=== PATIENT | female | born 1990 | race African-American/Black ===

== ENCOUNTER → 2019-06-05 12:02 | Outpatient (BNVA) | payer MEDICAID, SELFPAY | PROVIDERS: Visit Provider Nurse Practitioner Family | DX: J11.1 Influenza due to unidentified influenza virus with other respiratory manifestations (principal) | CPT/HCPCS: 87804 ==

== ENCOUNTER 2019-06-17 11:25 | Emergency (ER) | payer MEDICAID, SELFPAY ==
[2019-06-17 11:26] VITALS: BP 148/83; PULSE 68; RESP 18; O2SAT 98; BMI 47.9
--- NOTE | 2019-06-17 11:29 | W.ED.SKABFB ---
HPI - Skin/Abscess/Foreign Bdy General: Chief complaint: Skin/Abscess/Foreign Body Stated complaint: KNOT ON LEFT BREAST Time Seen by Provider: 06/17/19 11:29 Source: patient Mode of arrival: ambulatory Limitations: no limitations History of Present Illness: HPI narrative: Patient is a 28-year-old female who presents to ED today with complaints of a mass/lesion on her left breast; patient states she has noticed monthly around her menstrual cycle that she will get a cystic type lesion on her left lateral breast; patient states she will often try to squeeze the area and just gets blood; patient reports she has noticed 2 other small lumps to her breast during routine self breast exams; patient tells me she just had a first cousin who was diagnosed with breast cancer at the age of 32; patient denies nipple discharge MD complaint: other (cyst/mass) Onset (ago): month(s) Tetanus up to date: yes Location: chest (L breast) Relieving factors: none Exacerbating factors: none Associated symptoms: Reports no associated symptoms; Deny chills or fever(s) Treatments prior to arrival: none Review of Systems Const: Denies: fever or chills Card: Denies: chest pain, palpitations, irregular heart rhythm or lightheadedness Resp: Denies: shortness of breath, productive cough, coughing up blood or chest congestion Skin/Breast: Reports: other (lesion to L breast); Denies: rash PFSH ED PFSH: Statuses (acute, chronic, etc) shown below reflect problem list status as previously entered and may not be historically accurate Social History (Updated 06/05/19 @ 10:56 by Fabiana Car LPN) Smoking and tobacco status: current every day smoker Alcohol intake: current Alcohol intake frequency: holidays/special occasions only Physical Exam Const: COMMON NORMALS: no apparent distress, oriented x3, no limitations, alert and well nourished NUTRITIONAL APPEARANCE: obese morbidly obese Lymph: LYMPHATIC: no lymphadenopathy noted Chest: OTHER: pt has lesion to L lateral breast that is flat and darker than her normal skin tone; there is a central cleared area w/o discharge; no underlying fluctuance Neuro: COMMON NORMALS: oriented x3 SENSORIUM/ORIENTATION: Yes alert Course Vital Signs: Vital signs: Vital Signs Pulse Rate 90 06/17/19 12:32 Respiratory Rate 18 06/17/19 12:32 Blood Pressure 145/80 06/17/19 12:32 Pulse Oximetry 99 06/17/19 12:32 MDM - Skin/Abscess/Foreign Bdy MDM Narrative: Medical decision making narrative: given family history pt needs a mammogram; there is no concern for breast abscess today given hx and physical exam therefore breast US is not indicated from ED; info placed with CM to set her up with PCP Discharge Plan Discharge Patient Disposition: Home, Self-Care Clinical Impression: Breast mass in female Condition: Stable Prescriptions: No Action albuterol sulfate [ProAir HFA] 90 mcg/actuation HFA aerosol inhaler 2 puff INHALATION Q6H PRNRF: 0 albuterol sulfate 2.5 mg /3 mL (0.083 %) solution for nebulization 2.5 mg INHALATION .PRN RF: 0 escitalopram oxalate [Lexapro] 10 mg tablet 10 mg PO ONCE RF: 0 risperidone [Risperdal] 0.5 mg tablet 0.5 mg PO ONCE RF: 0 propranolol 20 mg tablet 20 mg PO TID PRNRF: 0 Discharge Orders: Discharge Order (Routine); Ordered 06/17/19 Ordered By: Cherelle Murillo Referrals: NOT ON FILE,DOCTOR [Occupational Therapist] - Activity Restrictions/Additional Instructions: As discussed I have placed your information and with case management. They should give you a call this week to schedule an appointment with primary care. It is imperative that you received a mammogram given the strong family history of breast cancer. Discharge Date/Time: 06/17/19 12:32 Coding Level of Care Code ED Wood Model Maker for Komal Hamilton
[2019-06-17 12:32] VITALS: BP 145/80; PULSE 90; RESP 18; O2SAT 99
--- NOTE | 2019-06-19 14:11 | DCPLANNER ---
manager decision support had message to speak with patient about getting established with a primary care physician. manager decision support called [phone], husbands cell, not able to speak with anyone, no voicemail set up. Then case resource manager called [phone] and that number was not accepting phone calls.
== END 2019-06-17 12:32 | disposition home or self-care (01) ==
LOC: ER 11:54
PROVIDERS: Emergency Provider Physician Assistant
DX: N63.0 Unspecified lump in unspecified breast (principal); F17.210 Nicotine dependence, cigarettes, uncomplicated
CPT/HCPCS: 99281

== ENCOUNTER 2019-06-23 08:48 | Emergency (ER) | payer MEDICAID, SELFPAY ==
[2019-06-23 08:49] VITALS: BP 119/78; PULSE 75; RESP 18; O2SAT 95; BMI 47.5
--- NOTE | 2019-06-23 08:49 | W.ED.BACK ---
HPI - Back Pain/Injury General: Chief Complaint: Back Pain/Injury Stated Complaint: LOW BACK PAIN Time Seen by Provider: 06/23/19 08:49 Source: patient Mode of arrival: EMS Limitations: no limitations History of Present Illness: HPI Narrative: Patient is a 28-year-old female who presents to ED today with complaints of back pain; patient states yesterday her back went out on her ; she states today she tried to workout and do yoga to try to help with the pain but it did not improve. Patient arrives via EMS where she received 30 mg IM Toradol in route. She states she has had a evaluation for this back pain previously and told it was her L4-L5 ; she reports pain radiates down her right lower extremity but denies numbness, tingling, loss of sensation; she denies saddle anesthesia, fecal incontinence, or urinary retention MD elicited complaint: back pain Pertinent past history: prior back pain Onset (ago): hour(s) Timing: constant Similar Symptoms Previously: Yes Location: lumbar spine and right lower back Radiation: other (R LE) Exacerbating factors: movement, sitting upright and walking Relieving factors: none Associated symptoms: Reports no associated symptoms and difficulty walking (secondary to pain); Deny abdominal pain, chills, dysuria, fever(s), nausea, urinary urgency or vomiting Review of Systems Const: Denies: fever or chills Card: Denies: chest pain, palpitations, swelling of feet/ankles or lightheadedness Resp: Denies: shortness of breath GI: Denies: abdominal pain, nausea or vomiting : Denies: flank pain, difficulty urinating, painful urination, urinary frequency, urinary urgency or urinary hesitancy Musc: Reports: back pain; Denies: neck pain, extremity swelling, joint pain, joint swelling, redness, joint warmth, joint stiffness, limited range of motion or muscle weakness Skin/Breast: Denies: rash Neuro: Reports: difficulty walking (secondary to pain); Denies: headache, numbness in extremities, weakness in extremities or changes in sensation PFSH ED PFSH: Statuses (acute, chronic, etc) shown below reflect problem list status as previously entered and may not be historically accurate Social History (Updated 06/05/19 @ 10:56 by Fabiana Car LPN) Smoking and tobacco status: current every day smoker Alcohol intake: current Alcohol intake frequency: holidays/special occasions only Physical Exam Const: COMMON NORMALS: oriented x3, no limitations and alert NUTRITIONAL APPEARANCE: obese morbidly obese Resp: COMMON NORMALS: normal respiratory effort and clear to auscultation bilaterally AUSCULTATION: clear to auscultation bilaterally Cardio: COMMON NORMALS: regular rate and regular rhythm RATE: regular rate RHYTHM: regular rhythm : COMMON NORMALS: Yes no CVA tenderness BLADDER/KIDNEY EXAM: Yes no CVA tenderness Back/Pelvis: COMMON NORMALS: no CVA tenderness LUMBAR SPINE/LOWER BACK: Yes ROM limited, Yes lumbar spinal tenderness Lumbar spinal tenderness location: L4 and L5, Yes straight leg raise positive right and Yes straight leg raise positive left PELVIS: Yes buttocks normal SACROILIAC JOINTS: Yes SI joint(s) abnormal (R SI) OTHER: pt is still able to flex/ext bilateral LEs against resistance Neuro: COMMON NORMALS: oriented x3 SENSORIUM/ORIENTATION: Yes alert Course Reevaluation(s): Reevaluation #1: pt is sound asleep in her room in [facility] Vital Signs: Vital signs: Vital Signs Pulse Rate 75 06/23/19 08:49 Respiratory Rate 18 06/23/19 08:49 Blood Pressure 119/78 06/23/19 08:49 Pulse Oximetry 95 06/23/19 08:49 Discharge Plan Discharge Patient Disposition: Home, Self-Care Clinical Impression: Acute exacerbation of chronic low back pain Condition: Stable Prescriptions: New cyclobenzaprine 10 mg tablet 10 mg PO TID Qty: 14 RF: 0 prednisone 10 mg tablet 60 mg PO DAILY 5 Days Qty: 30 RF: 0 diclofenac sodium 50 mg tablet,delayed release (DR/EC) 50 mg PO Q12H PRN (Reason: pain) Qty: 20 RF: 0 No Action albuterol sulfate [ProAir HFA] 90 mcg/actuation HFA aerosol inhaler 2 puff INHALATION Q6H PRNRF: 0 albuterol sulfate 2.5 mg /3 mL (0.083 %) solution for nebulization 2.5 mg INHALATION .PRN RF: 0 escitalopram oxalate [Lexapro] 10 mg tablet 10 mg PO ONCE RF: 0 risperidone [Risperdal] 0.5 mg tablet 0.5 mg PO ONCE RF: 0 propranolol 20 mg tablet 20 mg PO TID PRNRF: 0 Discharge Orders: Discharge Order (Routine); Ordered 06/23/19 Ordered By: Cherelle Murillo Discharge Activity: Increase activity as tolerated Activity Restrictions/Additional Instructions: Follow up with primary care in a week for continued pain. Discharge Date/Time: 06/23/19 10:15 Coding Level of Care Code ED [employer]els Product Development Manager for Komal Hamilton
--- NOTE | 2019-06-23 08:58 | PC.NURSE ---
Patient to treatment room 15 from ambulance.
[2019-06-23] MEDS: dexamethasone 10 mg/mL INJ 8 MG IM (09:11)
[2019-06-23] MEDS: orphenadrine 30 mg/mL Inj 2 mL 60 MG IM (09:13)
--- NOTE | 2019-06-23 09:19 | PC.NURSE ---
Patient assisted to bedside commode.
--- NOTE | 2019-06-23 09:44 | PC.NURSE ---
Micah wrap applied by client technical support associate. Crutches provided with instruction of use.
--- NOTE | 2019-06-26 11:55 | DCPLANNER ---
manager nuclear had message to speak with patient about getting established with a primary care physician. manager nuclear called patient, and she stated that she wanted help in getting established with a primary care physician. manager nuclear [place] [facility] [place]udy, patient was established and a follow up appointment was scheduled for , July 05, 2019 at 10:30 with Jesusita Shearer. manager nuclear called patient with appointment information. Patient does not have insurance at this time, will mail patient both of the financial aid counselor applications for the hospital to fill out and turn back in.
--- NOTE | 2019-08-01 15:44 | DCPLANNER ---
Patient did attend appointment scheduled for 07.05.19 with [facility] [place].
== END 2019-06-23 10:15 | disposition home or self-care (01) ==
PROVIDERS: Emergency Provider Physician Assistant
DX: G89.29 Other chronic pain (principal); M54.5 Low back pain; F17.210 Nicotine dependence, cigarettes, uncomplicated
CPT/HCPCS: 96372; 99281; 99283; J1100; J2360

== ENCOUNTER 2019-10-05 07:03 | Emergency (ER) | payer MEDICAID, SELFPAY ==
[2019-10-05 07:10] VITALS: BP 117/95; PULSE 89; RESP 18; TEMP 36.9; O2SAT 97; BMI 46.3
--- NOTE | 2019-10-05 07:16 | W.ED.BACK ---
HPI - Back Pain/Injury General: Chief Complaint: Extremity Injury, Lower Stated Complaint: pain in right leg Time Seen by Provider: 10/05/19 07:06 Source: patient Mode of arrival: ambulatory Limitations: no limitations History of Present Illness: HPI Narrative: Patient is a 29-year-old female who presents to ED today with complaints of right-sided back pain with radiation down into her right lower extremity. Patient tells me she has had symptoms for approximately 3 months now. Patient denies any numbness or tingling into her leg. She is not having any saddle anesthesia or bowel or bladder dysfunction. She states ibuprofen does seem to help with her pain. She has not been able to follow-up with PCP or obtain referrals for physical therapy due to COVID. She has been trying sciatica stretches and yoga. Patient is ambulatory with a minor limp upon arrival. Onset (ago): month(s) Timing: intermittent Severity: moderate Location: lumbar spine and right lower back Radiation: right upper leg and right leg below the knee Associated symptoms: Deny abdominal pain, chills, fever(s) or syncope Review of Systems Const: Denies: fever(s) or chills Card: Denies: chest pain, palpitations, irregular heart rhythm, edema, swelling of feet/ankles, syncope, pre-syncope or leg pain with exertion Resp: Denies: dyspnea GI: Denies: abdominal pain : Denies: difficulty voiding or urinary incontinence Musc: Reports: back pain and extremity pain (R LE); Denies: neck pain, extremity swelling, joint pain or joint swelling Skin/Breast: Denies: new lesions, changing lesions or changes in skin color Neuro: Denies: headache(s), numbness in extremities, weakness in extremities, sensory changes, lack of coordination or frequent falls [facility] ED PFSH: Medical History (Updated 10/05/19 @ 07:19 by EKATERINA Murphy) Hypertension Manic depressive disorder Surgical History (Updated 07/05/19 @ 12:23 by KADI Pascual) S/P section S/P cholecystectomy Family History Mother Diabetes Hypertension Father Diabetes Hypertension Other Cancer Social History Smoking and tobacco status: current every day smoker cigarettes Alcohol intake: current Alcohol intake frequency: holidays/special occasions only History of recent travel: No Physical Exam Const: COMMON NORMALS: no acute distress, patient oriented x3, no limitations and alert NUTRITIONAL APPEARANCE: obese morbidly obese HENMT: COMMON NORMALS: normocephalic and atraumatic HEAD & SCALP: normocephalic and atraumatic Resp: COMMON NORMALS: normal respiratory effort : COMMON NORMALS: Yes no CVA tenderness BLADDER/KIDNEY EXAM: Yes no CVA tenderness Back/Pelvis: COMMON NORMALS: no CVA tenderness THORACIC SPINE/UPPER BACK: Yes normal to inspection and Yes thoracic ROM normal LUMBAR SPINE/LOWER BACK: Yes lumbar spinal tenderness Lumbar spinal tenderness location: L3, L4 and L5 SACROILIAC JOINTS: Yes SI joint(s) abnormal (TTP over R SI) Neuro: COMMON NORMALS: patient oriented x3, moves all extremities, no focal motor deficits and no sensory deficits noted SENSORIUM/ORIENTATION: Yes alert GAIT: Yes Other gait observations present (limping gait) MOTOR EXAM: 5/5 motor strength present throughout Course Vital Signs: Vital signs: Vital Signs Temperature 98.5 F 10/05/19 07:10 Pulse Rate 89 10/05/19 07:10 Respiratory Rate 18 10/05/19 07:10 Blood Pressure 117/95 10/05/19 07:10 Pulse Oximetry 97 10/05/19 07:10 MDM - Back Pain/Injury MDM Narrative: Medical decision making narrative: recommend pt followup with PCP; she has no acute neurological deficits here that would warrant emergent imaging or further work up Discharge Plan Discharge Patient Disposition: Home, Self-Care Clinical Impression: Sciatica Qualifiers: Laterality: right Qualified Code(s): M54.31 - Sciatica, right side Condition: Stable Prescriptions: New cyclobenzaprine 10 mg tablet 10 mg PO TID Qty: 14 RF: 0 Medrol (Mike) 4 mg tablets,dose pack See Rx Instructions .ROUTE .COMPLEX Qty: 21 RF: 0 Discharge Orders: Discharge Order (Routine); Ordered 10/05/19 Ordered By: Cherelle Murillo Referrals: Sabine Shearer FNP [Primary Care Provider] - Discharge Diet: Usual diet Discharge Activity: Increase activity as tolerated Patient Instructions: Sciatica (ED), Lumbar Radiculopathy (ED), Piriformis Syndrome (ED), Sciatica Activity Restrictions/Additional Instructions: Continue taking 600-800mg Ibuprofen every 6-8 hours as well for discomfort. Please follow up with primary care in 1-2 weeks if pain persists. Discharge Date/Time: 10/05/19 07:59 Coding Level of Care Code ED Forest Ecologist for Komal Fwdennise Exam Detailed
[2019-10-05] MEDS: dexamethasone 10 mg/mL INJ 8 MG IM (07:26)
== END 2019-10-05 07:59 | disposition home or self-care (01) ==
PROVIDERS: Emergency Provider Physician Assistant; PCP Nurse Practitioner
DX: M54.31 Sciatica, right side (principal); I10 Essential (primary) hypertension; F17.210 Nicotine dependence, cigarettes, uncomplicated
CPT/HCPCS: 12345; 96372; 99281; 99283; J1100

== ENCOUNTER 2019-10-25 20:40 | Emergency (ER) | payer MEDICAID, SELFPAY ==
[2019-10-25 20:45] VITALS: BP 155/117; PULSE 84; RESP 18; TEMP 37; O2SAT 98
--- NOTE | 2019-10-25 20:51 | W.ED.BACK ---
HPI - Back Pain/Injury General: Chief Complaint: Back Pain/Injury Stated Complaint: back/leg pain Time Seen by Provider: 10/25/19 20:43 Source: patient Mode of arrival: ambulatory Limitations: no limitations History of Present Illness: HPI Narrative: 29-year-old female who has chronic lower back pain. She states she has sciatica as well. States that she had worsening back pain over the last week or right lower back with sciatica down her leg. She has been trying to establish PCP but is unable to get into her primary care doctor. She denies any bowel or bladder incontinence. She has no difficulty walking. MD elicited complaint: back pain Pertinent past history: prior back pain Onset (ago): month(s) Timing: constant Severity: moderate Quality: burning Location: lumbar spine Radiation: right upper leg Exacerbating factors: none Relieving factors: none Associated symptoms: Deny abdominal pain, chills, dysuria, fever(s), nausea or vomiting Review of Systems Const: Denies: fever(s), chills, body aches or change in appetite Eyes: Denies: blurry vision or eye discomfort ENMT: Denies: throat pain or dental pain Card: Denies: chest pain Resp: Denies: dyspnea GI: Denies: abdominal pain, nausea, vomiting or diarrhea : Denies: dysuria Musc: Denies: neck pain or back pain Skin/Breast: Denies: rash Neuro: Denies: headache(s) Psych: Denies: depression Shree/Lymph: Denies: easy bruising All/Imm: Denies: urticaria PFSH ED PFSH: Medical History (Updated 10/25/19 @ 20:50 by Emily Guillen MD) Hypertension Manic depressive disorder Surgical History (Updated 07/05/19 @ 12:23 by KADI Pascual) S/P section S/P cholecystectomy Family History Mother Diabetes Hypertension Father Diabetes Hypertension Other Cancer Social History Smoking and tobacco status: current every day smoker cigarettes Alcohol intake: current Alcohol intake frequency: holidays/special occasions only History of recent travel: No Female Reproductive History: Date of last menstrual period: 10/16/19 Physical Exam Const: COMMON NORMALS: no acute distress, patient oriented x3 and healthy appearing HENMT: COMMON NORMALS: normocephalic and atraumatic HEAD & SCALP: normocephalic and atraumatic Eye: COMMON NORMALS: Equal, round and reactive pupils present and EOMs intact bilaterally PUPIL: Yes Equal, round and reactive pupils present Neck/C-Spine: COMMON NORMALS: full ROM and supple Chest: COMMONS NORMALS: normal inspection of the chest and normal palpation of entire chest wall Resp: COMMON NORMALS: normal respiratory effort, No retractions, No use of accessory muscles and clear to auscultation bilaterally AUSCULTATION: clear to auscultation bilaterally Cardio: COMMON NORMALS: regular rate, regular rhythm and No murmurs present (Cardio) RATE: regular rate RHYTHM: regular rhythm GI: COMMON NORMALS: Normal to inspection, nondistended, normoactive bowel sounds present, Soft to palpation, non-tender and no masses PALPATION: Yes Soft to palpation Back/Pelvis: OTHER: No midline tenderness or saddle anesthesia. Tenderness over right lower back Extremity: COMMON NORMALS: normal to inspection and full ROM Neuro: COMMON NORMALS: patient oriented x3, moves all extremities and no focal motor deficits Psych: COMMON NORMALS: mental status grossly normal, Normal thought process present and cooperative THOUGHT PROCESS: Normal thought process present Skin: COMMON NORMALS: no rashes or lesions noted and no wounds GENERAL SKIN EXAM: no rashes or lesions noted Course Vital Signs: Vital signs: Vital Signs Temperature 98.6 F 10/25/19 20:45 Pulse Rate 84 10/25/19 20:45 Respiratory Rate 18 10/25/19 20:45 Blood Pressure 155/117 10/25/19 20:45 Pulse Oximetry 98 10/25/19 20:45 MDM - Back Pain/Injury MDM Narrative: Medical decision making narrative: Patient presents here with low back pain and sciatica that is chronic in nature. Will place patient on steroids along with Naprosyn and Robaxin. She is to follow-up with primary care doctor in 2 to 4 days return if worsening. She has no signs of cord compression or epidural abscess. Discharge Plan Discharge Patient Disposition: Home, Self-Care Clinical Impression: Low back pain Qualifiers: Chronicity: chronic Back pain laterality: right Sciatica presence: with sciatica Sciatica laterality: sciatica of right side Qualified Code(s): M54.41 - Lumbago with sciatica, right side Condition: Stable Prescriptions: New Robaxin-750 750 mg tablet 750 mg PO Q6H Qty: 30 RF: 0 Naprosyn 500 mg tablet 500 mg PO BID PRN (Reason: pain) Qty: 20 RF: 0 prednisone 10 mg tablets,dose pack See Rx Instructions .ROUTE .COMPLEX Qty: 21 RF: 0 Discharge Orders: Discharge Order (Routine); Ordered 10/25/19 Ordered By: Emily Guillen Referrals: Sabine Shearer FNP [Primary Care Provider] - Discharge Diet: Advance as tolerated Discharge Activity: Resume usual activity Patient Instructions: Sciatica (ED) Coding Level of Care Code ED Moisture Machine Tender for Komal Hamilton
[2019-10-25] MEDS: dexamethasone 10 mg/mL INJ IM (21:13)
[2019-10-25] MEDS: HYDROcodone-acetaminophen 10-325 mg Tablet 1 TAB PO (21:13)
[2019-10-25 21:17] VITALS: BP 145/100; PULSE 109; RESP 18; O2SAT 95
[2019-10-25 21:41] VITALS: BP 138/98; PULSE 68; RESP 18
--- NOTE | 2019-10-26 15:30 | DCPLANNER ---
manager strategic sourcing had message to speak with patient about getting established with a primary care physician. manager strategic sourcing called [phone], a recording stated that this number is not accepting calls at this time.
== END 2019-10-25 21:42 | disposition home or self-care (01) ==
LOC: ER 21:01
PROVIDERS: Emergency Provider Emergency Medicine; PCP Nurse Practitioner
DX: G89.29 Other chronic pain (principal); M54.41 Lumbago with sciatica, right side; I10 Essential (primary) hypertension; F17.210 Nicotine dependence, cigarettes, uncomplicated
CPT/HCPCS: 12345; 96372; 99282; 99283; J1100

== ENCOUNTER 2019-11-01 11:45 | Emergency (ER) | payer MEDICAID, SELFPAY ==
[2019-11-01 11:58] VITALS: BP 131/88; PULSE 91; RESP 14; TEMP 35.6; O2SAT 96; BMI 50.5
--- NOTE | 2019-11-01 13:02 | MR_ITS ---
WS: [id number] MRI LUMBAR SPINE NONCONTRAST HISTORY: sciatica, RLE weakness, urinary incontinence COMPARISON: None available. TECHNIQUE: Sagittal and axial multisequence imaging is submitted. Straightening of the normal cervical lordosis. Mild thoracolumbar scoliosis with increase in the thor acic curvature. Increase in the lumbar lordosis. No fracture or marrow edema. Mild disc desiccation without loss of height at L4-5 and L5-S1. Conus terminates normally at L1. L1-L2: Normal. L2-L3: Normal. L3-L4: Mild facet arthropathy. Small amount of fluid in the facet joints with mild foraminal narrowin g. L4-L5: Mild annular disc bulging. Broad-based central disc protrusion with contact on the ventral the keven cord and mild displacement. There is very minimal narrowing of the subarticular recesses. Disc co ntact is moderate on the RIGHT L5 nerve root. L5-S1: Diffuse annular disc bulging. Disc bulging is asymmetric to the RIGHT. Focal disc protrusion R IGHT subarticular recess encroaching upon the S1 nerve root. There is mild contact on the LEFT L5 ner ve root. Mild LEFT foraminal narrowing. There is moderate enlargement of the RIGHT S1 nerve root as c ompared to the LEFT. Visualized retroperitoneum is negative. MR/MR lumbar spine wo con* [id number] IMPRESSION: 1. Quality of this examination is limited by body habitus and motion. 2. Asymmetric disc bulging with a focal RIGHT subarticular disc protrusion at L5-S1. Contact on the S1 nerve root with mild bilateral foraminal narrowing at L5-S1. 3. The RIGHT S1 nerve root is enlarged as compared to the LEFT. Mild the RIGHT is suspected. 4. Mild disc osteophyte contact on the RIGHT L5 nerve root at L4-5. Mild bilat eral foraminal narrowing at L4-5.
[2019-11-01 13:12] VITALS: RESP 16
[2019-11-01] MEDS: morphine 4 mg/mL SDV 1 mL 10 MG IVP (13:12)
[2019-11-01 13:13] LABS: Basophils % 0.3 %; Eosinophils # 0.2 10^3/uL (0.0-0.8); Hematocrit 43.1 % (37.0-47.0); Lymphocytes # 4.4 10^3/uL (0.8-4.8); Lymphocytes % 43.3 %; Mean Corpuscular HGB Conc 32.5 g/dL (30.0-36.0); Mean Corpuscular Hemoglobin 29.9 pg (28.0-34.0); Mean Corpuscular Volume 92.1 fL (81-99); Mean Platelet Volume 11.7 fL (7.4-10.4); Monocytes # 0.8 10^3/uL (0.2-0.9); Monocytes % 7.7 %; Neutrophils # 4.6 10^3/uL (1.8-7.7); Neutrophils % 45.5 %; Nucleated Red Blood Cells % 0 %; Platelet Count 362 10^3/cmm (130-400); Red Blood Count 4.68 10^6/uL (4.1-5.3); Red Cell Distribution Width 13.5 % (12.1-15.1); White Blood Count 10.1 10^3/uL (4.0-10.0)
[2019-11-01] MEDS: ondansetron 2 mg/ML SDV 2 mL 4 MG IVP (13:14)
[2019-11-01 13:22] VITALS: BP 139/90; PULSE 77; RESP 16; O2SAT 97
[2019-11-01 13:26] LABS: Alanine Aminotransferase 29 U/L (0-33); Albumin Level 4.2 g/dL (3.5-5.2); Alkaline Phosphatase 76 IU/L (35-105); Anion Gap 17.5 (5-19); Aspartate Amino Transferase 21 U/L (0-32); Blood Urea Nitrogen 19 mg/dL (6-20); Calcium 9.7 mg/dL (8.5-10.5); Carbon Dioxide 23 mmol/L (22-29); Chloride 103 mmol/L (98-107); Creatine Phosphokinase 118 U/L (26-192); Globulin 3.2 g/dL (1.3-4.6); Glomerular Filtration Rate 141.1 mL/min (90-130); Glucose 102 mg/dL (65-115); Osmolality Calculated 285 mOsm/kg (285-295); Potassium 4.5 mmol/L (3.5-5.1); Sodium 139 mmol/L (136-145); Total Bilirubin 0.3 mg/dL (0.15-1.2); Total Protein 7.4 g/dL (6.6-8.7)
[2019-11-01 13:40] VITALS: BP 152/93; PULSE 65; RESP 16; O2SAT 97
[2019-11-01 13:51] LABS: Add Urine Microscopic? NO
[2019-11-01] MEDS: LORazepam 1 mg Tablet PO (14:18)
[2019-11-01 14:22] LABS: Bilirubin Urine Neg (NEGATIVE); Blood Urine Neg (Negative); Glucose Urine UA Norm (Normal); Ketones Urine Negative (Negative); Leukocyte Esterase Urine Negative (Negative); Nitrate Urine Negative (Negative); Protein Urine Neg (Negative); Urine Appearance Clear (CLEAR); Urine Color Yellow (Yellow); Urobilinogen Urine Norm (Negative); pH Urine 5 (5-7)
[2019-11-01] MEDS: metoclopramide 5 mg/mL SDV 2 mL 10 MG IVP (16:07)
[2019-11-01 17:04] VITALS: BP 91/64; PULSE 68; RESP 16; O2SAT 95
--- NOTE | 2019-11-01 17:04 | W.ED.PSYCH ---
HPI - Psych General: Chief Complaint: Psychiatric Symptoms Stated Complaint: RIGHT LEG PAIN Time Seen by Provider: 11/01/19 12:10 Source: patient Mode of arrival: ambulatory Limitations: no limitations History of Present Illness: HPI Narrative: Patient presents with low back pain radiating down her right leg. She has been seen twice in this facility for the same thing. She had been instructed to get an MRI but because of the COVID-19 pandemic it has not been scheduled. She states that the pain is worsening, radiating down her right leg with some numbness and reduced sensation in her lateral 3 toes on the right foot. She endorses some weakness in the right lower extremity. She is now also having urinary incontinence and at times difficulty passing urine. Pain is much worse when she sits known and relieved on standing. Because nothing has helped her pain she is feeling very depressed and low and bloated out to the triage nurse that she does not care if she dies or not. The patient however denies suicidal ideation or plan. Review of Systems General: Reports: 10 or more systems reviewed and unremarkable except in HPI and below Const: Denies: fever(s), chills or body aches Eyes: Denies: change in vision or blurry vision ENMT: Denies: throat pain, enlarged tonsils, odynophagia, hoarseness, mouth pain or swelling of lips/tongue Card: Denies: palpitations, irregular heart rhythm, edema or swelling of feet/ankles Resp: Denies: dyspnea, productive cough or non-productive cough GI: Denies: abdominal pain, nausea or vomiting : Reports: difficulty voiding and urinary incontinence; Denies: flank pain, dysuria, urinary frequency, urinary urgency or urinary hesitancy Musc: Reports: back pain, extremity pain and muscle weakness (right lower extremity); Denies: neck pain or extremity swelling Skin/Breast: Denies: rash, pruritus or erythema Neuro: Denies: headache(s), numbness in extremities or weakness in extremities Endo: Denies: polyuria, polydipsia or tired all the time PFS ED PFSH: Medical History (Updated 11/01/19 @ 17:08 by Tito Diehl MD, [facility] [place] Hypertension Manic depressive disorder Surgical History (Updated 07/05/19 @ 12:23 by KADI Pascual) S/P section S/P cholecystectomy Family History Mother Diabetes Hypertension Father Diabetes Hypertension Other Cancer Social History Smoking and tobacco status: current every day smoker cigarettes Alcohol intake: current Alcohol intake frequency: holidays/special occasions only History of recent travel: No Female Reproductive History: Date of last menstrual period: 10/16/19 Physical Exam Const: COMMON NORMALS: no acute distress, average body habitus, patient oriented x3, no limitations, healthy appearing, alert and well nourished HENMT: COMMON NORMALS: normocephalic, atraumatic and moist oral mucous membranes HEAD & SCALP: normocephalic and atraumatic Eye: COMMON NORMALS: Equal, round and reactive pupils present, EOMs intact bilaterally, conjunctivae normal and no scleral icterus CONJUNCTIVA: Yes conjunctivae normal PUPIL: Yes Equal, round and reactive pupils present Neck/C-Spine: COMMON NORMALS: full ROM, supple, no meningeal signs, no JVD and No carotid bruits Chest: COMMONS NORMALS: normal inspection of the chest and normal palpation of entire chest wall Resp: COMMON NORMALS: normal respiratory effort, No retractions, No use of accessory muscles, clear to auscultation bilaterally and percussion normal AUSCULTATION: clear to auscultation bilaterally PERCUSSION: percussion normal Cardio: COMMON NORMALS: no JVD, regular rate, regular rhythm, S1 normal heart sound present, S2 normal heart sound present, No gallops present (Cardio), No clicks present (Cardio), No murmurs present (Cardio), No rub (Cardio) and Peripheral pulses 2+ throughout RATE: regular rate RHYTHM: regular rhythm HEART SOUNDS: S1 normal heart sound present and S2 normal heart sound present PERIPHERAL PULSES: Peripheral pulses 2+ throughout GI: COMMON NORMALS: Normal to inspection, nondistended, normoactive bowel sounds present, Soft to palpation, non-tender, No hepatosplenomegaly present, no masses and no bruits PALPATION: Yes Soft to palpation and Yes No hepatosplenomegaly present : COMMON NORMALS: Yes no CVA tenderness BLADDER/KIDNEY EXAM: Yes no CVA tenderness Back/Pelvis: COMMON NORMALS: no CVA tenderness and thoracic and lumbar spine normal to inspection LUMBAR SPINE/LOWER BACK: Yes lumbar spinal tenderness Extremity: COMMON NORMALS: normal to inspection, full ROM, capillary refill normal, no calf tenderness and no pedal edema Neuro: COMMON NORMALS: patient oriented x3 SENSORIUM/ORIENTATION: Yes alert MENINGEAL SIGNS: Yes no meningeal signs SENSORY EXAM: Yes extremities (mild parestheisa in the R foot.) MOTOR EXAM: 5/5 motor strength present throughout Psych: COMMON NORMALS: mental status grossly normal, Normal thought process present, cooperative, normal affect, speech normal, activity/motor behavior normal, denies hallucinations, denies homicidal ideation and denies suicidal ideation SPEECH: Yes normal speech THOUGHT PROCESS: Normal thought process present Skin: COMMON NORMALS: no rashes or lesions noted, no wounds, turgor normal, no jaundice, no petechiae and no mottling GENERAL SKIN EXAM: no rashes or lesions noted and turgor normal MDM - Psych MDM Narrative: Medical decision making narrative: 29-year-old female patient who presents with low back pain and symptoms consistent with lumbar radiculopathy. Because she was having some neurologic symptoms including paresthesia, leg weakness, and urinary incontinence an urgent MRI was done. MRI did not reveal anything acute. She is discharged home to follow-up with the neurosurgeon. She was given a dose of intravenous Decadron and a prescription for oral hydrocodone/acetaminophen. Medical Records: Attestation: I reviewed the patient's medical records. Lab Data: Attestation: I reviewed the patient's lab results. Labs: Lab Results 11/01/19 11/01/19 11/01/19 Range/Units 12:47 12:47 13:40 WBC 10.1 H (4.0-10.0) 10^3/ uL RBC 4.68 (4.1-5.3) 10^6/u L Hgb 14.0 (11.5-15.3) g/dL Hct 43.1 (37.0-47.0) % MCV 92.1 (81-99) fL MCH 29.9 (28.0-34.0) pg MCHC 32.5 (30.0-36.0) g/dL RDW 13.5 (12.1-15.1) % Plt Count 362 (130-400) 10^3/c mm MPV 11.7 H (7.4-10.4) fL Neut % (Auto) 45.5 % Lymph % (Auto) 43.3 % [place] % (Auto) 7.7 % Eos % (Auto) 2.0 % Baso % (Auto) 0.3 % Neut # (Auto) 4.6 (1.8-7.7) 10^3/u L Lymph # (Auto) 4.4 (0.8-4.8) 10^3/u L [place] # (Auto) 0.8 (0.2-0.9) 10^3/u L Eos # (Auto) 0.2 (0.0-0.8) 10^3/u L Baso # (Auto) 0.0 (0.0-0.1) 10^3/u L Nucleated RBC % (a uto) 0 % Nucleated RBCs # 0.0 /100WBC Sodium 139 (136-145) mmol/L Potassium 4.5 (3.5-5.1) mmol/L Chloride 103 (98-107) mmol/L Carbon Dioxide 23 (22-29) mmol/L Anion Gap 17.5 (5-19) BUN 19 (6-20) mg/dL Creatinine 0.6 (0.5-0.9) mg/dL GFR Calculation 141.1 H (90-130) mL/min Glucose 102 (65-115) mg/dL Calculated Osmolal ity 285 (285-295) mOsm/k g Calcium 9.7 (8.5-10.5) mg/dL Total Bilirubin 0.3 (0.15-1.2) mg/dL AST 21 (0-32) U/L ALT 29 (0-33) U/L Alkaline Phosphata se 76 (35-105) IU/L Creatine Kinase 118 (26-192) U/L Total Protein 7.4 (6.6-8.7) g/dL Albumin 4.2 (3.5-5.2) g/dL Globulin 3.2 (1.3-4.6) g/dL Urine Color Yellow (Yellow) Urine Appearance Clear (CLEAR) Urine pH 5 (5-7) Ur Specific Gravit y 1.020 (1.005-1.030) Urine Protein Neg (Negative) Urine Glucose (UA) Norm (Normal) Urine Ketones Negative (Negative) Urine Blood Neg (Negative) Urine Nitrate Negative (Negative) Urine Bilirubin Neg (NEGATIVE) Urine Urobilinogen Norm (Negative) mg/dL Ur Leukocyte [place] Negative (Negative) Imaging Data^: MRI: Radiologist's impression: [address] [place] [address] Magnetic Resonance Report Signed Patient: Harjinder Lees #: [id number] : 1990Acct#:[id number] Age/Sex: FADM Date: 11/01/19 Loc: ERRoom/Bed: Attending Dr: Ordering Provider/Ordering MD: Tito Diehl MD, [facility] [facility] [place] of Service: 11/01/19 Procedure(s): MR lumbar spine wo con* [id number] Accession Number(s): [id number] Report Number: [id number] WS: [id number] MRI LUMBAR SPINE NONCONTRAST HISTORY: sciatica, RLE weakness, urinary incontinence COMPARISON: None available. TECHNIQUE: Sagittal and axial multisequence imaging is submitted. Straightening of the normal cervical lordosis. Mild thoracolumbar scoliosis with increase in the thoracic curvature. Increase in the lumbar lordosis. No fracture or marrow edema. Mild disc desiccation without loss of height at L4-5 and L5-S1. Conus terminates normally at L1. L1-L2: Normal. L2-L3: Normal. L3-L4: Mild facet arthropathy. Small amount of fluid in the facet joints with mild foraminal narrowing. L4-L5: Mild annular disc bulging. Broad-based central disc protrusion with contact on the ventral thecal cord and mild displacement. There is very minimal narrowing of the subarticular recesses. Disc contact is moderate on the RIGHT L5 nerve root. L5-S1: Diffuse annular disc bulging. Disc bulging is asymmetric to the RIGHT. Focal disc protrusion RIGHT subarticular recess encroaching upon the S1 nerve root. There is mild contact on the LEFT L5 nerve root. Mild LEFT foraminal narrowing. There is moderate enlargement of the RIGHT S1 nerve root as compared to the LEFT. Visualized retroperitoneum is negative. MR/MR lumbar spine wo con* [id number] IMPRESSION: 1. Quality of this examination is limited by body habitus and motion. 2. Asymmetric disc bulging with a focal RIGHT subarticular disc protrusion at L5-S1. Contact on the S1 nerve root with mild bilateral foraminal narrowing at L5-S1. 3. The RIGHT S1 nerve root is enlarged as compared to the LEFT. Mild the RIGHT is suspected. 4. Mild disc osteophyte contact on the RIGHT L5 nerve root at L4-5. Mild bilateral foraminal narrowing at L4-5. Dictated By:Sade Byers DO Signed By:Sade Byers DOSigned Date/Time:11/01/19 1551 DD/ 1543 Discharge Plan Discharge Patient Disposition: Home, Self-Care Clinical Impression: Bulging of lumbar intervertebral disc, Herniated nucleus pulposus, L5-S1, right Condition: Stable Prescriptions: [place] 5-325 mg tablet 1 tab PO Q8H PRN (Reason: pain) Qty: 12 RF: 0 Continued methocarbamol [Robaxin-750] 750 mg tablet 750 mg PO Q6H Qty: 30 RF: 0 naproxen [Naprosyn] 500 mg tablet 500 mg PO BID PRN (Reason: pain) Qty: 20 RF: 0 Multiple Vitamins Tablet 1 tab PO DAILY RF: 0 risperidone 2 mg tablet 2 mg PO BEDTIME RF: 0 ibuprofen 200 mg Tablet 600 - 800 mg PO PRN RF: 0 Tylenol PM Extra Strength 25-500 mg Tablet 2 tab PO PRN RF: 0 propranolol 20 mg tablet 20 mg PO TID PRN (Reason: unknown) RF: 0 escitalopram oxalate 10 mg tablet 10 mg PO DAILY RF: 0 Discharge Orders: Discharge Order (Routine); Ordered 11/01/19 Ordered By: Tito Diehl Referrals: Nathan Purvis MD [Physician] - 4-7 days Sabine Shearer FNP [Primary Care Provider] - 4-7 days Patient Instructions: Lumbar Disc Herniation (ED), Lumbar Radiculopathy (ED) Activity Restrictions/Additional Instructions: Return for any new or worsening symptoms. Follow-up with your primary care provider within 1 week. You will be contacted by case management to schedule a follow-up appointment with the neurosurgeon next week. Take the pain medications as needed for pain. You can also try a warm compress to your lower back to see if that would also help with your symptoms. Discharge Date/Time: 11/01/19 17:28 Coding Level of Care Code ED Hospital Housekeeper for Chg Fwd Exam Comprehensive
[2019-11-01] MEDS: dexamethasone 4 mg/mL INJ 8 MG IVP (17:18)
[2019-11-01 17:22] VITALS: BP 109/64; PULSE 66; RESP 16
--- NOTE | 2019-11-02 09:54 | DCPLANNER ---
Addendum entered by Sonia Rios 11/02/19 10:28: Patient called pillowcase cleaner asking about appointments that needed to be scheduled. shift manager gave patient the appointment information for the appointment with Beatriz. Patient asked about getting a primary care physician. shift manager called the office of CONTROLLED AREA CHECKER, Wanda Pérez, spoke with Priscilla, gave clinic patients information. A follow up appointment was scheduled for patient for Tuesday, November 05, 2019 at 9:30 with Beto. shift manager called patient and informed her of the scheduled appointment. Patient stated that she would attend the appointment. Original Note: shift manager had message to schedule a follow up appointment for patient with Dr. Purvis at [facility]. shift manager called the clinic, spoke with Maureen, gave clinic patients information. A follow up appointment was scheduled for Thursday, November 07, 2019 at 8:00 with Beatriz. Clinic will call patient with appointment information.
--- NOTE | 2019-11-21 13:15 | DCPLANNER ---
Patient did attend appointment scheduled for 11.05.19 with Isai Pérez and patient also attended appointment scheduled for 11.07.19 with [facility].
== END 2019-11-01 17:28 | disposition home or self-care (01) ==
PROVIDERS: Emergency Provider Family Medicine; PCP Nurse Practitioner
DX: M51.26 Other intervertebral disc displacement, lumbar region (principal); M51.27 Other intervertebral disc displacement, lumbosacral region; I10 Essential (primary) hypertension; F17.210 Nicotine dependence, cigarettes, uncomplicated
CPT/HCPCS: 12345; 72148; 80053; 81003; 82550; 85025; 96374; 96375; 99283; J1100; J2270; J2405; J2765

== ENCOUNTER → 2020-01-10 15:31 | Outpatient (BNVA) | payer MEDICAID, SELFPAY | PROVIDERS: PCP Nurse Practitioner; Visit Provider Licensed Practical Nurse | DX: M51.17 Intervertebral disc disorders with radiculopathy, lumbosacral region (principal); M54.9 Dorsalgia, unspecified; G89.29 Other chronic pain; E66.01 Morbid (severe) obesity due to excess calories; Z68.42 Body mass index [BMI] 45.0-49.9, adult | CPT/HCPCS: 99213 ==

== ENCOUNTER 2020-03-01 09:19 | Emergency (ER) | payer MEDICAID, SELFPAY ==
[2020-03-01 09:50] VITALS: BP 124/83; PULSE 83; RESP 18; TEMP 37; O2SAT 98; BMI 50.5
--- NOTE | 2020-03-01 10:22 | XRR_ITS ---
PROCEDURE INFORMATION: Exam: XR Chest, 1 View Exam date and time: 03/01/2020 11:04 AM Age: 29 years old Clinical indication: Cough and dyspnea; Additional info: Dyspnea/cough TECHNIQUE: Imaging protocol: XR of the chest Views: 1 view. COMPARISON: No relevant prior studies available. FINDINGS: Lungs: Unremarkable. No consolidation. Pleural space: Unremarkable. No pleural effusion. No pneumothorax. Heart/Mediastinum: Unremarkable. No cardiomegaly. Bones/joints: Unremarkable. XR/XR chest 1V portable [id number] IMPRESSION: No acute findings.
--- NOTE | 2020-03-01 10:23 | ED_ITS ---
HPI - SOB/Dyspnea General: Chief Complaint: Shortness of Breath/Dyspnea Stated Complaint: SOB, WHEEZING Time Seen by Provider: 03/01/20 10:14 History of Present Illness: HPI Narrative: 29-year-old female presents to the emergency room along with her child. She has mild asthma she has had increasing cough shortness of breath myalgias low-grade fever and diarrhea. She is not have any respiratory distress at this time. The diarrhea is been ongoing for a week. She is not used any beta agonist. MD elicited complaint: shortness of breath and cough Pertinent past history: asthma Onset (ago): day(s) (6-7) Context: recent illness Timing: constant and progressively worsening Severity: mild Exacerbating factors: nothing Relieving factors: nothing Known history of: asthma Associated symptoms: Reports cough, fever(s) (Subjective), nausea and vomiting; Deny abdominal pain, chest congestion, chest pain, diaphoresis, dizziness, ex tremity pain, hemoptysis, lightheadedness, myalgias, orthopnea, palpitations, paresthesias, polydipsia, polyuria, rash, sense of impending doom or syncope Treatment prior to arrival: none Review of Systems Const: Reports: fever(s) (Subjective); Denies: diaphoresis ENMT: Denies: throat pain, ear or mastoid pain, nasal discharge or nasal congestion Card: Denies: chest pain, palpitations, lightheadedness, syncope or orthopnea Resp: Denies: hemoptysis or chest congestion GI: Reports: nausea and vomiting; Denies: abdominal pain : Denies: flank pain, difficulty voiding, dysuria, urinary frequency or urinary urgency Musc: Denies: extremity pain Skin/Breast: Denies: rash or pruritus Neuro: Denies: dizziness Endo: Denies: polyuria or polydipsia PFSH ED PFSH: Medical History Chronic back pain greater than 3 months duration Grief Hypertension 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 Morbid obesity with BMI of 45.0-49.9, adult Surgical History History of hernia repair S/P section S/P cholecystectomy Family History Mother Diabetes Hypertension Father Diabetes Hypertension Grandmother Cancer breast Social History Smoking and tobacco status: current every day smoker cigarettes Alcohol intake: current Alcohol intake frequency: holidays/special occasions only Household members: friend(s) Marital status: / Current occupational status: disabled History of recent travel: No Female Reproductive History: Date of last menstrual period: 02/15/20 Physical Exam Const: COMMON NORMALS: no acute distress GENERAL APPEARANCE: cooperative and comfortable ORIENTATION/CONSCIOUSNESS: Yes awake, Yes oriented to person, Yes oriented to place and Yes oriented to time HENMT: COMMON NORMALS: normocephalic, atraumatic and hearing grossly normal bilaterally HEAD & SCALP: normocephalic and atraumatic Neck/C-Spine: COMMON NORMALS: no JVD Resp: AUSCULTATION: wheezes Cardio: COMMON NORMALS: no JVD, regular rate, regular rhythm and No murmurs pr esent (Cardio) RATE: regular rate RHYTHM: regular rhythm GI: COMMON NORMALS: Soft to palpation and No hepatosplenomegaly present AUSCULTATION: Yes normoactive bowel sounds PALPATION: Yes Soft to palpation, No Tenderness to palpation present (GI), No Guarding due to palpation present (GI) and Yes No hepatosplenomegaly present Extremity: COMMON NORMALS: normal to inspection, capillary refill normal, no clubbing, cyanosis or edema, no calf tenderness and no pedal edema Neuro: SENSORIUM/ORIENTATION: Yes oriented to person, Yes oriented to place and Yes oriented to time Skin: COMMON NORMALS: no rashes or lesions noted GENERAL SKIN EXAM: no rashes or lesions noted Course Vital Signs: Vital signs: Vital Signs Temperature 98.6 F 03/01/20 09:50 Pulse Rate 83 03/01/20 09:50 Respiratory Rate 18 03/01/20 09:50 Blood Pressure 124/83 03/01/20 09:50 Pulse Oximetry 98 03/01/20 09:50 MDM - SOB/Dyspnea MDM Narrative: Medical decision making narrative: Her lungs are clear and her exam is normal she is maintaining sats well I suspect she does have COVID based on her symptoms her son is even more symptomatic. We will get echo and discharge her home to use albuterol inhaler 2 puffs every 4 hours as needed recommend she remain in self quarantine until COVID results are available. Discharge Plan Discharge Patient Disposition: Home Clinical Impression: Viral URI, Suspected 2019-nCoV infection Condition: Stable Prescriptions: New albuterol sulfate 90 mcg/actuation HFA aerosol inhaler 2 inh INHALATION Q4H PRN (Reason: shortness of breath or wheezing) Qty: 18 RF: 0 No Action tizanidine 4 mg capsule 4 mg PO Q8H PRN (Reason: muscle spasticity) Qty: 30 RF: 0 naproxen 500 mg tablet 500 mg PO BID Qty: 30 RF: 0 propranolol 20 mg tablet 20 mg PO TID PRN (Reason: unknown) Qty: 30 RF: 0 venlafaxine [Effexor XR] 37.5 mg capsule,extended release 24hr 37.5 mg PO DAILY Qty: 45 RF: 0 ibuprofen 200 mg capsule 800 mg PO Q6H PRNRF: 0 Multiple Vitamins Tablet 1 tab PO DAILY RF: 0 risperidone 2 mg tablet 2 mg PO BEDTIME RF: 0 Tylenol PM Extra Strength 25-500 mg Tablet 2 tab PO PRN RF: 0 [place] 5-325 mg tablet 1 tab PO Q8H PRN (Reason: pain) Qty: 12 RF: 0 Discharge Orders: Discharge Order (Routine); Ordered 03/01/20 Ordered By: Quentin Gaona Discharge Diet: Usual diet Discharge Activity: Limit activity as instructed Activity Restrictions/Additional Instructions: Recommend that you remain in quarantine until the results of your coronavirus swab return. Use albuterol inhaler as needed limit activity. If you have worsening shortness of breath return to the emergency room Coding Level of Care Code ED [employer] Police Officer for Dannyg Fwd Exam Comprehensive
[2020-03-01 13:00] VITALS: BP 130/80; PULSE 83; O2SAT 96
[2020-03-02 14:16] LABS: Quest SARS-CoV-2 RNA NOT DETECTED (NOT DETECTED)
== END 2020-03-01 13:00 | disposition home or self-care (01) ==
PROVIDERS: Emergency Provider Family Medicine
DX: J06.9 Acute upper respiratory infection, unspecified (principal); Z20.828 Contact with and (suspected) exposure to other viral communicable diseases; I10 Essential (primary) hypertension; F17.210 Nicotine dependence, cigarettes, uncomplicated
CPT/HCPCS: 12345; 71045; 87635; 99282; 99283

== ENCOUNTER → 2020-08-17 11:30 | Outpatient (BNVA) | payer MEDICAID, SELFPAY | PROVIDERS: Visit Provider Nurse Practitioner | DX: R39.9 Unspecified symptoms and signs involving the genitourinary system (principal); Z20.2 Contact with and (suspected) exposure to infections with a predominantly sexual mode of transmission | CPT/HCPCS: 81000; 87491; 87591; 87661 ==

== ENCOUNTER → 2021-05-11 13:11 | Outpatient (BNVA) | payer MEDICAID, SELFPAY | PROVIDERS: Visit Provider Nurse Practitioner Family | DX: Z11.52 Encounter for screening for COVID-19 (principal) | CPT/HCPCS: 87635 ==

== ENCOUNTER → 2021-07-07 13:21 | Outpatient (BNVA) | payer MEDICAID, SELFPAY | PROVIDERS: Visit Provider Nurse Practitioner Family | DX: Z20.822 Contact with and (suspected) exposure to COVID-19 (principal); R05.9 Cough, unspecified | CPT/HCPCS: 87635 ==

== ENCOUNTER → 2021-09-24 12:12 | Outpatient (BNVA) | payer MEDICAID, SELFPAY | PROVIDERS: Visit Provider Nurse Practitioner Family | DX: J30.9 Allergic rhinitis, unspecified (principal); I10 Essential (primary) hypertension; F31.9 Bipolar disorder, unspecified; J32.0 Chronic maxillary sinusitis; R05.9 Cough, unspecified | CPT/HCPCS: 80053; 80061; 84443 ==

== ENCOUNTER 2021-10-14 11:08 | Emergency (ER) | payer MEDICAID, SELFPAY ==
--- NOTE | 2021-10-14 11:10 | XR_ITS ---
WS: [id number] Exam: XR chest 1V portable [id number] Date/Time of Exam: 10/14/2021 11:11 AM Reason For Exam: chest pain Comparison 03/01/2020 Findings: The lungs are clear and fully expanded. Costophrenic angles are sharp. No infiltrates. Bronchovascula r relief appears normal. Cardiac silhouette is unremarkable. Bony elements are intact. XR/XR chest 1V portable [id number] IMPRESSION: Unremarkable chest radiograph.
--- NOTE | 2021-10-14 11:10 | ECG_ITS ---
[facility] Test Date: 2021-10-14 Pat Name: Carmelina Lees Department: Room: Gender: Female College Football Coach: : 1990 Requested By: Prakash Godinez Order Number: [id number] Flaquito MD: Julia Cline M.D. Measurements Intervals [place] Rate: 65 P: 61 AK: 145 QRS: 56 QRSD: 88 T: 27 QT: 419 QTc: 438 Interpretive Statements SINUS RHYTHM WITH SINUS ARRHYTHMIA No previous ECG available for comparison Electronically Signed On 10-14-2021 21:49:15 CDT by Julia Cline M.D. [id number]
[2021-10-14 11:26] VITALS: BP 129/88; PULSE 62; RESP 16; TEMP 530.6; TEMP 987; O2SAT 100
--- NOTE | 2021-10-14 11:28 | W.ED.GENADLT ---
HPI - General Adult General: Chief complaint: Chest Pain Stated complaint: CHEST PAIN Time Seen by Provider: 10/14/21 11:10 History of Present Illness: CC: Chest Pain HPI: This is a [31]yo patient hx of HTN, smoking presenting to the ED complaining of acute sudden onset intermittent sternal chest pain with the radiation to the left shoulder and back. He tells me that earlier this morning around 10 AM she was walking when she suddenly felt a pressure-like sensation in her chest and needed to hold onto furniture at home while walking. Chest pain is not tearing in nature and does not radiate to the back. Pain not associated with vomiting or PO intake. Denies any recent sympathomimetic drug use. Patient denies any cough. Denies palpitations, dysphagia, diaphoresis, radiation of pain to bilateral arms, jaw. Denies F/N/V/D. Patient denies any recent surgery, unilateral leg swelling, or prior PE. Patient denies any orthopnea. Patient tells me that 3 days ago, she came home from a trip from [place] which was 14 hours. Patient has a family history of cardiac diseases including mother who had a heart attack when she was 28. Onset: 3 days ago Duration: ongoing for the last 3 days Location: home Severity: moderate Associated symptoms: Reports chest pain; Deny dyspnea, nausea, rash, palpitations or vomiting Review of Systems Const: Denies: fever(s) or chills Eyes: Denies: change in vision ENMT: Denies: mouth pain Card: Reports: chest pain; Denies: palpitations Resp: Denies: dyspnea or non-productive cough GI: Denies: abdominal pain, nausea, vomiting or diarrhea : Denies: dysuria Musc: Denies: extremity pain Skin/Breast: Denies: rash or new lesions Neuro: Denies: weakness in extremities Psych: Reports: other (Normal mood) Shree/Lymph: Denies: easy bruising PFSH ED PFSH: Medical History Chronic back pain greater than 3 months duration Grief Hypertension 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 Morbid obesity with BMI of 45.0-49.9, adult Surgical History History of hernia repair S/P section S/P cholecystectomy Family History (Updated 10/14/21 @ 11:31 by Prakash Godinez MD) Mother Diabetes Hypertension Father Diabetes Hypertension Grandmother Cancer breast Other CAD (coronary artery disease) Social History Smoking and tobacco status: never smoked Alcohol intake: current Alcohol intake frequency: holidays/special occasions only Household members: friend(s) Marital status: / Current occupational status: disabled History of recent travel: No Physical Exam Const: COMMON NORMALS: alert HENMT: COMMON NORMALS: atraumatic HEAD & SCALP: atraumatic MOUTH: moist mucous membranes not abnormal Eye: COMMON NORMALS: EOMs intact bilaterally and conjunctivae normal CONJUNCTIVA: Yes conjunctivae normal Neck/C-Spine: COMMON NORMALS: full ROM and supple Resp: COMMON NORMALS: normal respiratory effort and clear to auscultation bilaterally AUSCULTATION: clear to auscultation bilaterally Cardio: COMMON NORMALS: regular rate RATE: regular rate GI: COMMON NORMALS: Soft to palpation and non-tender PALPATION: Yes Soft to palpation Extremity: COMMON NORMALS: full ROM Neuro: SENSORIUM/ORIENTATION: Yes alert MOTOR EXAM: No Abnormal motor strength present and Other motor observations present (no focal motor deficits) Psych: COMMON NORMALS: speech normal SPEECH: Yes normal speech MOOD & AFFECT: Yes euthymic mood Course Vital Signs: Vital signs: Vital Signs Temperature 987.0 F H 10/14/21 11:26 Pulse Rate 54 L 10/14/21 13:39 Respiratory Rate 16 10/14/21 13:39 Blood Pressure 114/84 10/14/21 13:39 Pulse Oximetry 99 10/14/21 13:39 MDM - General Adult Medical Decision Making [31]yo patient w/ hx of HTN, smoking, recent travel presenting to the ED with evaluation of new onset pressure-like chest pain lasting for 15 minutes at a time x 3 days. HDS, pulse 2+ radially bilaterally, no signs of fluid overload, AAOx3, neuro exam intact. Given History and Exam today I have no suspicion for ACS, Pneumothorax, Pneumonia, Pulmonary Embolus, Tamponade, Aortic Dissection or other emergent problems as a cause for this presentation. Workup: ECGx2, CXR, CBC, BMP, Troponin x2 Interventions: ASA, nitro SL Findings: ECG: No overt evidence of STEMI, hyperacute T waves, localizable STD or T wave inversions. No evidence of Brugada?s sign, delta wave, epsilon wave, significantly prolonged QTc, or malignant arrhythmia. No Q waves. Other Labs unremarkable for emergent problems. CXR: Without PTX, PNA, or widened mediastinum Last Stress Test: never Last Heart Catheterization: never HEART Score: 3 Dimer wnl [2:46pm] On reassessment, the patient is HDS, no complaints of persistent chest pain in the ED after evaluation. ECG is non-ischemic. Workup today is unremarkable. Doubt ACS/PE or other emergent causes of chest pain. Doubt ACS/PE or other emergent causes of chest pain. No suspicion for aortic dissection given no widened mediastinum, 2+ upper extremity pulses, or tearing pain. No suspicion for PE given no pleuritic chest pain, recent immobilization or surgery hemoptysis, or other VTE risk factors. EKG is non-ischemic. XR normal. I have given patient follow up with our rifle case repairer to be seen by our outpatient Cardiology for family hx of chest pain. Patient aware of a call from our rifle case repairer to schedule for appointment(s) and verbalizes understanding of the importance of following up. Disposition: Discharge. Strict return precautions discussed with the patient with full understanding. Advised patient to follow up promptly with a primary care provider in 24-48 hrs if the patient has persistent symptoms. Given return instructions for any crushing/tearing chest pain, focal weakness, syncope or any new or concerning issues. Lab Data : 10/14/21 11:48 10/14/21 11:48 Radiology Impressions Chest X-Ray 10/14/21 11:10 IMPRESSION: Unremarkable chest radiograph. Laboratory Results WBC 7.3 10^3/uL (4.0-10.0) 10/14/21 11:48 RBC 4.20 10^6/uL (4.1-5.3) 10/14/21 11:48 Hgb 12.7 g/dL (11.5-15.3) 10/14/21 11:48 Hct 36.7 % (37.0-47.0) L 10/14/21 11:48 MCV 87.4 fl (81-99) 10/14/21 11:48 MCH 30.2 pg (28.0-34.0) 10/14/21 11:48 MCHC 34.6 g/dL (30.0-36.0) 10/14/21 11:48 RDW 13.3 % (12.1-15.1) 10/14/21 11:48 Plt Count 327 10^3/cmm (130-400) 10/14/21 11:48 MPV 11.2 fL (7.4-10.4) H 10/14/21 11:48 Neut % (Auto) 42.5 % 10/14/21 11:48 Lymph % (Auto) 45.8 % 10/14/21 11:48 [place] % (Auto) 7.1 % 10/14/21 11:48 Eos % (Auto) 3.8 % 10/14/21 11:48 Baso % (Auto) 0.5 % 10/14/21 11:48 Neut # (Auto) 3.10 10^3/uL (1.8-7.7) 10/14/21 11:48 Lymph # (Auto) 3.3 10^3/uL (0.8-4.8) 10/14/21 11:48 [place] # (Auto) 0.5 10^3/uL (0.2-0.9) 10/14/21 11:48 Eos # (Auto) 0.3 10^3/uL (0.0-0.8) 10/14/21 11:48 Baso # (Auto) 0.0 10^3/uL (0.0-0.1) 10/14/21 11:48 Nucleated RBC % (auto) 0 % 10/14/21 11:48 Nucleated RBCs # 0.0 /100WBC 10/14/21 11:48 D-Dimer <= 0.27 ug/mIFEU (0-0.59) 10/14/21 11:48 Sodium 138 mmol/L (136-145) 10/14/21 11:48 Potassium 3.7 mmol/L (3.5-5.1) 10/14/21 11:48 Chloride 105 mmol/L (98-107) 10/14/21 11:48 Carbon Dioxide 20 mmol/L (22-29) L 10/14/21 11:48 Anion Gap 16.7 (5-19) 10/14/21 11:48 BUN 8 mg/dL (6-20) 10/14/21 11:48 Creatinine 0.5 mg/dL (0.5-0.9) 10/14/21 11:48 GFR Calculation 171.9 mL/min (90-130) H 10/14/21 11:48 Glucose 98 mg/dL (65-115) 10/14/21 11:48 Calculated Osmolality 284 mOsm/kg (285-295) L 10/14/21 11:48 Calcium 9.4 mg/dL (8.5-10.5) 10/14/21 11:48 Troponin T Baseline 6 ng/L (0-10) 10/14/21 11:48 Troponin T 120 Minute 7.46 ng/L (0-10) 10/14/21 13:30 Discharge Plan Discharge Patient Disposition: Home Clinical Impression: Chest pain Condition: Stable Prescriptions: New acetaminophen 500 mg tablet 500 mg PO Q6H PRN (Reason: pain) 5 Days Qty: 20 0RF No Action ibuprofen 200 mg capsule 800 mg PO Q6H PRN0RF fexofenadine-pseudoephedrine [Yamilet-D 12 Hour] 60-120 mg tablet extended release 12 hr 1 tab PO Q12H PRN (Reason: allergy symptoms) 10 Days Qty: 20 0RF cephalexin 500 mg capsule 500 mg PO BID 10 Days Qty: 20 0RF promethazine-DM 6.25-15 mg/5 mL syrup 5 - 10 ml PO Q6H PRN (Reason: cough) Qty: 200 1RF albuterol sulfate 90 mcg/actuation HFA aerosol inhaler 2 inh INHALATION Q4H PRN (Reason: shortness of breath or wheezing) Qty: 18 11RF budesonide-formoterol [Symbicort] 160-4.5 mcg/actuation HFA aerosol inhaler 2 puff inhalation BID Qty: 10.2 11RF Tylenol PM Extra Strength 25-500 mg Tablet 2 tab PO PRN 0RF Discharge Orders: Discharge ED (Routine); Ordered 10/14/21 Ordered By: Prakash Godinez Discharge Diet: Advance as tolerated Discharge Activity: Increase activity as tolerated Patient Instructions: Chest Pain (ED) Activity Restrictions/Additional Instructions: Come back to the emergency room if your chest pain worsens, have any fever or chills, worsening shortness of breath, worsening exertional lightheadedness, or any new or concerning complaints. Our rifle case repairer will have you follow-up with Cardiology in the next few days. You would be expected to have a phone call with our rifle case repairer who will put you on the schedule. You can expect a call from us in the next 2-3 days. If you don't hear from us, call us back in the emergency room at [phone]. Coding Level of Care Code ED Petrophysicist for Komal Fwd Exam Comprehensive
[2021-10-14 12:06] LABS: Basophils % 0.5 %; Eosinophils # 0.3 10^3/uL (0.0-0.8); Eosinophils % 3.8 %; Hematocrit 36.7 % (37.0-47.0); Hemoglobin 12.7 g/dL (11.5-15.3); Lymphocytes # 3.3 10^3/uL (0.8-4.8); Lymphocytes % 45.8 %; Mean Corpuscular HGB Conc 34.6 g/dL (30.0-36.0); Mean Corpuscular Hemoglobin 30.2 pg (28.0-34.0); Mean Corpuscular Volume 87.4 fl (81-99); Mean Platelet Volume 11.2 fL (7.4-10.4); Monocytes # 0.5 10^3/uL (0.2-0.9); Monocytes % 7.1 %; Neutrophils % 42.5 %; Nucleated Red Blood Cells % 0 %; Platelet Count 327 10^3/cmm (130-400); Red Cell Distribution Width 13.3 % (12.1-15.1); White Blood Count 7.3 10^3/uL (4.0-10.0)
[2021-10-14] MEDS: morphine 4 mg/mL SDV 1 mL 2 MG IVP (12:13)
[2021-10-14 12:30] VITALS: BP 120/81; PULSE 59; RESP 18; O2SAT 99
[2021-10-14 12:40] LABS: Blood Urea Nitrogen 8 mg/dL (6-20)
[2021-10-14 12:45] LABS: Troponin(5th) Baseline 6 ng/L (0-10)
[2021-10-14 12:55] LABS: Anion Gap 16.7 (5-19); Calcium 9.4 mg/dL (8.5-10.5); Carbon Dioxide 20 mmol/L (22-29); Chloride 105 mmol/L (98-107); Glomerular Filtration Rate 171.9 mL/min (90-130); Glucose 98 mg/dL (65-115); Osmolality Calculated 284 mOsm/kg (285-295); Potassium 3.7 mmol/L (3.5-5.1); Sodium 138 mmol/L (136-145)
[2021-10-14 13:07] LABS: D Dimer <= 0.27 ug/mIFEU (0-0.59)
--- NOTE | 2021-10-14 13:10 | ECG_ITS ---
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 Measurements Intervals [place] Rate: 50 P: 42 CO: 158 QRS: 75 QRSD: 84 T: -28 QT: 441 QTc: 404 Interpretive Statements SINUS BRADYCARDIA NONSPECIFIC T-WAVE ABNORMALITY Compared to ECG 10/14/2021 11:21:00 T-wave abnormality now present Sinus rhythm no longer present Sinus arrhythmia no longer present Electronically Signed On 10-14-2021 22:08:02 CDT by Julia Cline M.D. [id number]
[2021-10-14 13:39] VITALS: BP 114/84; PULSE 54; RESP 16; O2SAT 99
[2021-10-14 14:30] LABS: Troponin 5 2HR 7.46 ng/L (0-10)
[2021-10-14 15:19] LABS: Troponin 5 2HR Delta 1.46 ABS# (0-10)
[2021-10-14 15:33] VITALS: BP 116/78; PULSE 61; RESP 14; O2SAT 99
--- NOTE | 2021-10-15 11:36 | DCPLANNER ---
Addendum entered by Sonia Rios 10/18/21 10:21: Patient has a follow up appointment scheduled for Tuesday, December 14, 2021 at 12:[address] Martínez at [facility]. Clinic will call patient with appointment information. Original Note: manager area had message to schedule a followup appointment for patient with cardiology. manager area sent patients information to the front office staff at [facility]. Patients information will be printed and reviewed. Clinic will call patient with appointment information.
== END 2021-10-14 15:34 | disposition home or self-care (01) ==
PROVIDERS: Emergency Provider Emergency Medicine
DX: R07.9 Chest pain, unspecified (principal); I10 Essential (primary) hypertension
CPT/HCPCS: 71045; 80048; 84484; 85025; 85378; 93005; 96374; 99285; J2270

== ENCOUNTER → 2021-12-31 12:46 | Outpatient (BNVA) | payer MEDICAID, SELFPAY | PROVIDERS: PCP Family Medicine; Visit Provider Family Medicine | DX: N89.8 Other specified noninflammatory disorders of vagina (principal) | CPT/HCPCS: 87070; 87205 ==